=== PATIENT | male | born 1955 | race Caucasian/White ===

== ENCOUNTER 2023-07-18 12:30 | Emergency (ER) | payer MEDICARE, OTHER, SELFPAY ==
[2023-07-18 12:56] VITALS: BP 149/70; PULSE 72; RESP 16; TEMP 36.6; O2SAT 95
--- NOTE | 2023-07-18 13:09 | ECG_ITS ---
Measurements Intervals [place] Rate: 70 P: 52 AR: 179 QRS: -10 QRSD: 153 T: 94 QT: 412 QTc: 447 Interpretive Statements SINUS RHYTHM LEFT BUNDLE BRANCH BLOCK ABNORMAL ECG NO PREVIOUS ECG AVAILABLE FOR COMPARISON Electronically Signed On 07-18-2023 13:42:41 CDT by Marvin Metz D.O.
--- NOTE | 2023-07-18 13:44 | ED.EXTPRO ---
HPI - Extremity Problem General Chief complaint: Extremity Problem,Nontraumatic Stated complaint: pain under lt arm Time Seen by Provider: 07/18/23 13:15 Source: patient Mode of arrival: ambulatory Limitations: no limitations History of Present Illness HPI Narrative: 67-year-old male presents concern for pain under his left arm that started 2 weeks ago. Reports he has been doing a lot of heavy lifting and moving shoulders. He reports pain worsens with coughing, deep breathing, moving left arm. He denies shortness of breath. He denies nausea. He denies bruising. He denies injury or trauma. Complaint: extremity pain Related Data Home Medications Medication Instructions Recorded Confirmed lisinopril 10 mg tablet 10 mg PO DAILY 07/18/23 07/18/23 rosuvastatin 20 mg tablet 20 mg PO DAILY 07/18/23 07/18/23 Allergies Allergy/AdvReac Type Severity Reaction Status Date / Time No Known Allergies Allergy Mild Verified 07/18/23 12:59 Review of Systems Review of Systems: CONSTITUTIONAL: Denies malaise, chills, sweats, or fever. CARDIOVASCULAR: Denies chest pain, palpitations, or edema. RESPIRATORY: Denies cough or dyspnea. SKIN: Denies bruising, swelling, deformity MUSCULOSKELETAL: Reports pain under the left arm NEUROLOGIC: Denies numbness, weakness, or headache. All systems reviewed & are unremarkable except as noted in HPI and below PMFSH Comments At time of signature, agree with nursing past medical, surgical, social and family history. There is no relevant family history pertinent to the presenting complaint Exam Narrative: GENERAL: Well-appearing, well-nourished, and in no acute distress. HEAD: Normocephalic, atraumatic. EYES: PERRLA, sclera clear ENT: Nares clear. Mucous membranes moist. NECK: Supple. No jugular venous distension, thyromegaly, or carotid bruits. Carotids were easily palpable bilaterally. CHEST: No respiratory distress. Clear to auscultation. No bony deformities, no asymmetry. Speaks in full sentences. HEART: Regular rate and rhythm. No murmur heard. Normal peripheral pulses. EXTREMITIES: Normal range of motion. No edema. Normal strength and sensation. No point tenderness SKIN: Warm, dry, no visible rash. NEURO: Alert and oriented x3. PSYCH: Normal mood and affect Course Course Emergency Course: Patient's symptoms are consistent with musculoskeletal etiology, positional in nature, worsens with coughing and deep breathing Discussed EKG findings with patient, he does see a tour counselor for his high cholesterol but does not know of any history of left bundle-branch block. Patient will make an appoint with his tour counselor for follow-up on this EKG. Patient is aware of diagnosis, understands and agrees to treatment plan. Anticipatory guidance given. Patient agrees to follow-up as directed and is aware of reasons to seek care at the emergency department. Portions of this record may have been created with voice recognition software Level of Care: Express Care Visit Vital Signs Vital signs: Vital Signs Temperature 97.8 F 07/18/23 12:56 Pulse Rate 72 07/18/23 12:56 Respiratory Rate 16 07/18/23 12:56 Blood Pressure 149/70 H 07/18/23 12:56 Pulse Oximetry 95 07/18/23 12:56 Oxygen Delivery Room Air 07/18/23 12:56 Temperature 97.8 F 07/18/23 12:56 Pulse Rate 72 07/18/23 12:56 Respiratory Rate 16 07/18/23 12:56 Blood Pressure 149/70 H 07/18/23 12:56 Pulse Oximetry 95 07/18/23 12:56 Oxygen Delivery Room Air 07/18/23 12:56 Reviewed. MDM - Extremity (Nontraumatic) MDM Narrative Medical decision making narrative: No evidence of ACS, pericarditis, myocarditis, pulmonary embolism, pneumothorax, pneumonia, Zoster, or esophageal perforation. Historically not abrupt in onset, tearing or ripping, pulses symmetric, no evidence of aortic dissection. No pulse deficit. Not associated with abdominal or back pain. ECG Data EKG #1: ECG completio
== END 2023-07-18 14:00 | disposition home or self-care (01) ==
PROVIDERS: Emergency Provider Nurse Practitioner
DX: R07.89 Other chest pain (principal); Z79.899 Other long term (current) drug therapy
CPT/HCPCS: 93005; 99213; G0463

== ENCOUNTER 2024-04-22 12:54 | Emergency (ER) | payer MEDICARE, OTHER, SELFPAY ==
--- NOTE | ~2024-04-22 | XR_ITS ---
EXAMINATION: XR foot LT min 3V DATE: 04/22/2024 14:05 INDICATION: Swelling and bruising at the left foot TECHNIQUE: Dorsoplantar, two oblique and lateral views of the left foot were obtained. COMPARISON: None. FINDINGS: Alignment is normal. No fracture. Polyarticular osteoarthritis, mild at several tarsal metatarsal and interphalangeal joints and minimal at the first metatarsophalangeal joint. Small plantar calcaneal s pur. Soft tissues are unremarkable. IMPRESSION: 1. Mild polyarticular osteoarthritis in the mid and forefoot. Reviewed, dictated and finalized at location A. ESTIMATOR
[2024-04-22 13:07] VITALS: BP 148/71; PULSE 73; RESP 16; TEMP 36.7; O2SAT 95
--- NOTE | 2024-04-22 13:29 | ED.GENADULT ---
HPI - General Adult General Chief complaint: Skin/Abscess/Foreign Body Stated complaint: spider bite Time Seen by Provider: 04/22/24 13:29 Source: patient, RN notes reviewed and old records reviewed Mode of arrival: ambulatory Limitations: no limitations History of Present Illness HPI narrative: 68-year-old male presents to the [facility] with concerns for bruising to the dorsal aspect left foot. Bruising noted just to the dorsal aspect. No bruising. Mild swelling noted. No tenderness. No pain. Patient states that he noticed it Monday, 5 days ago. Patient is on Plavix Treatments prior to arrival: none Related Data Home Medications ?Medication ?Instructions ?Recorded ?Confirmed ?Last Taken ?Type lisinopril 10 mg tablet 10 mg PO DAILY 07/18/23 07/18/23 Unknown History rosuvastatin 20 mg tablet 20 mg PO DAILY 07/18/23 07/18/23 Unknown History clopidogrel 75 mg tablet mg 04/22/24 Unknown History ezetimibe 10 mg tablet mg 04/22/24 Unknown History Allergies Allergy/AdvReac Type Severity Reaction Status Date / Time No Known Allergies Allergy Mild Verified 04/22/24 13:20 Review of Systems Review of Systems: All systems reviewed & are unremarkable except as noted in HPI and below Constitutional: Constitutional: Reports no additional constitutional complaints ENT: Reports system reviewed and no additional complaints, except as documented Cardiovascular: Cardiovascular: Reports no additional cardiovascular complaints, Denies chest pain and Denies dyspnea Respiratory: Respiratory: Reports no additional respiratory complaints, Denies chest congestion, Denies cough and Denies dyspnea Gastrointestinal: Gastrointestinal: Reports no additional gastrointestinal complaints, Denies abdominal pain, Denies nausea and Denies vomiting Musculoskeletal: Musculoskeletal: Reports no additional musculoskeletal complaints Integumentary/Breasts: Skin/Breast: Reports as per HPI PMFSH Comments At the time of my signature, I reviewed and agree with the nursing past medical, surgical, social, and family history. There is no relevant family history pertinent to the patient complaint. Exam Const: General: cooperative, healthy appearing, comfortable, no acute distress, well developed, alert and well nourished Nutritional Appearance: well nourished Orientation/consciousness: patient oriented x3 Limitations: no limitations HENMT: Head: normal to inspection Face and sinus: normal facial exam and face symmetric Eyes: General: appearance normal, both eyes and all related structures Alignment and Position: alignment normal Periorbital: periorbital findings normal Neck: Neck: normal visual inspection, full ROM, no lymphadenopathy and no meningeal signs Chest: Chest palpation & inspection: normal inspection of the chest Resp: Effort & Inspection: normal respiratory effort and able to speak in complete sentences Cardio: Rate: regular rate Skin: General skin exam: normal color and no rashes or lesions noted Lesions: no lesions Rashes: no rashes Wounds: no wounds Other: Dorsal aspect left foot, bruising, mild swelling noted. No tenderness to palpation Neuro: General: patient oriented x3, gait normal, tone normal, moves all extremities and no meningeal signs Cognition (Neuro): normal cognition Speech: normal speech Gait exam (Neuro): Normal gait present Extrem: General: normal to inspection, full ROM, capillary refill normal and normal gait Left lower extremity: foot Details: normal capillary refill, toes with normal ROM, ecchymosis, vascular exam Details: dorsalis pedis pulse present and motor-sensory exam light-touch normal; no tenderness, no abrasions and no lacerations Psych: Appearance: grossly normal and well kempt Mental Status: mental status grossly normal Speech and movement: Normal speech and movement present and Clear speech present Affect: normal affect Attitude: cooperative Course Course Level of Care: Express Care Visit Vital Signs Vital signs: Vital Signs Temperature 98.0 F 04/22/24 13:07 Pulse Rate 73 04/22/24 13:07 Respiratory Rate 16 04/22/24 13:07 Blood Pressure 148/71 H 04/22/24 13:07 Pulse Oximetry 95 04/22/24 13:07 Temperature 98.0 F 04/22/24 13:07 Pulse Rate 73 04/22/24 13:07 Respiratory Rate 16 04/22/24 13:07 Blood Pressure 148/71 H 04/22/24 13:07 Pulse Oximetry 95 04/22/24 13:07 Reviewed Medical Decision Making MDM Narrative Medical decision making narrative: Patient sitting comfortably in exam room. Nontoxic, vitals stable. Patient in no acute distress Patient presents for bruising to left foot. No known injury, x-rays negative Most likely bruising noted to minor injury due to patient being on Plavix. Walks with a normal gait. No numbness tingling or pain. Patient appropriate for outpatient treatment and follow-up Discharge instructions reviewed with patient, as well as provided in writing per nursing staff. The instructions also include specific and strict return/GO TO THE ER as well as f/u information. All questions have been answered, and the patient deny any further questions with discharge and discharge plan. Some parts of this dictation were generated by voice recognition software and may contain typographical and/or grammatical inaccuracies. Differential Diagnosis Differential Diagnosis: Contusion, fracture Medical Records Medical records reviewed: Yes I reviewed the external patient's medical records. Vital Signs Vital Signs: Vital Signs Temperature 98.0 F 04/22/24 13:07 Pulse Rate 73 04/22/24 13:07 Respiratory Rate 16 04/22/24 13:07 Blood Pressure 148/71 H 04/22/24 13:07 Pulse Oximetry 95 04/22/24 13:07 Temperature 98.0 F 04/22/24 13:07 Pulse Rate 73 04/22/24 13:07 Respiratory Rate 16 04/22/24 13:07 Blood Pressure 148/71 H 04/22/24 13:07 Pulse Oximetry 95 04/22/24 13:07 Reviewed Lab Data Lab results reviewed: Yes I reviewed the patient's lab results. Labs: Reviewed Imaging Data Radiologist's impression: EXAMINATION: XR foot LT min 3V DATE: 04/22/2024 14:05 INDICATION: Swelling and bruising at the left foot TECHNIQUE: Dorsoplantar, two oblique and lateral views of the left foot were obtained. COMPARISON: None. FINDINGS: Alignment is normal. No fracture. Polyarticular osteoarthritis, mild at several tarsal metatarsal and interphalangeal joints and minimal at the first metatarsophalangeal joint. Small plantar calcaneal spur. Soft tissues are unremarkable. IMPRESSION: 1. Mild polyarticular osteoarthritis in the mid and forefoot. Critical Care Time Critical Care Time Critical Care Time: No Discharge Plan Discharge Clinical Impression: Superficial bruising of foot Qualifiers: Encounter type: initial encounter Laterality: left Qualified Code(s): S90.32XA - Contusion of left foot, initial encounter Patient Disposition: Home, Self-Care Condition: Stable Instructions: Antibiotic Form, Contusion in Adults (ED) Additional Instructions: Rest, ice and elevate every 2-3 hours for 15-20 minutes. Bruising was probably caused by your blood thinner medication. Follow-up with primary care provider as needed New or worsening symptoms go directly to the emergency room Patient Language: Maldivian Prescriptions: No Action lisinopril 10 mg tablet 10 mg PO DAILY rosuvastatin 20 mg tablet 20 mg PO DAILY clopidogrel 75 mg tablet ezetimibe 10 mg tablet Follow-up/Referrals: PHYSICIAN,GOVERNMENT AUDITOR [Primary Care Provider] - Time of Disposition: 15:03
== END 2024-04-22 15:07 | disposition home or self-care (01) ==
PROVIDERS: Emergency Provider Nurse Practitioner; Referring Provider Emergency Medicine
DX: S90.32XA Contusion of left foot, initial encounter (principal); X58.XXXA Exposure to other specified factors, initial encounter; Y93.9 Activity, unspecified; I10 Essential (primary) hypertension; E78.00 Pure hypercholesterolemia, unspecified; Z95.5 Presence of coronary angioplasty implant and graft
CPT/HCPCS: 73630; 99212; G0463

== ENCOUNTER 2024-09-04 00:47 | Day surgery (SDC) | payer MEDICARE, OTHER, SELFPAY ==
[2024-08-23 09:14] VITALS: BMI 36.6
--- NOTE | 2024-08-23 09:26 | PC.NURSE ---
Spoke with patient regarding medication Plavix. Patient verbalizes understanding that the last dose is to be taken on 08/27/2024 and the Endoscopist will instruct them when to restart after the procedure.
--- OUTSIDE RECORDS SUMMARY | 2024-09-04 00:49 | XMS_ITS | Encounter Summary ---
Author Organization [facility] Address [address] [place] [id number] Care Team Providers Care Search Advertising Strategist Name Role Phone Harrison Davis MD Unavailable [phone] Mel Garland MD Primary Care Provider + Reason for Visit * Reason Onset Date Comments Prior Authorization 08/29/2024 Repatha - de nied Medication Information 08/29/2024 praluent Encounter Details Date Type Department Care Team (Late st Contact Info) Description 08/29/2024 Telephone [facility] [address] [id number] Shani Barksdale CMA Prior Authorization (Repatha - denied); Medication Information (praluent) Social History Tobacco Use Types Packs/Day Years Used Date Smoking Tobacco: Never Passive Smoke Exposure: Past Smokeless Tobacco: Never Alcohol Use Standard Drinks/Week Comments Yes 16.7 (1 standard drink = 0.6 oz pure alcohol) Rare PHQ-2 Answer Date Recorded Patient Health Questionnaire-2 Score 0 05/24/2024 Sex and Gender Information Value Date Recorded Sex Assigned at Male 05/21/2024 3:47 PM 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 ki * Emmy Miranda NP - 09/03/2024 3:25 PM CDT Praluent 75 mg SQ every 2 weeks Thanks * Shani Barksdale CMA - 09/02/2024 3:21 PM CDT Tried Raghu several times. No answer. Called elida back. He has never tried praluent. Message to provider to change to praluent. Needing strength 75mg or 150mg. ki * Shani Barksdale CMA - 08/29/2024 5:24 PM CDT While filling out the prior auth for repatha. Notice that the application came from [facility]. [facility] prefers praluent. Called pt to see if he changed insurance. Pt asked that I call his (raghu) [phone]. Calledleobardo and LMOM for her to call the office back. gavin documented in this encounter Plan of Treatment Upcoming Encounters Date Type Department Care Team (Late st Contact Info) Description 10/22/2024 10:30 AM CDT Office Visit [facility] Family Medicine - [place] [address] [place] [address] Mel Garland MD [address] [place] [address] 03/04/2025 9:00 AM CDT Office Visit [facility], [address] [place], [place] [address] Harrison Davis MD Three [facility]. [address] [place], [place] [address] 05/27/2025 7:10 AM VIBRATING SCREED OPERATOR Allied Health/Nurse Visit [facility] - [address] [place] [address], [place] [address] Mel Garland MD [address] [place] [address] [place] [address] [phone] 05/30/2025 7:50 AM VIBRATING SCREED OPERATOR Office Visit [facility] - [address] [place] [address] [phone] Mel Garland MD [address] [place] [address] [place] [phone] documented as of this encounter Visit Diagnoses Not on filedocumented in this encounter Care Teams Search Advertising Strategist Relationship Specialty Start Date End Date Mel Garland MD [address] [facility] [address] [place] [id number] PCP - General FAMILY PRACTICE 05/24/24 Harrison Davis MD Three [facility]. [address] [place], [place] [address] [employer] CARDIOVASCULAR DISEASE 11/01/17 documented as of this encounter
--- OUTSIDE RECORDS SUMMARY | 2024-09-04 00:50 | XMS_ITS | Referral Summary ---
Author Organization [facility] Address [address] [place] [address] Care Team Providers Care Dry Cleaner Apprentice Name Role Phone Rudy Alexander MD Primary Care Provider [phone] Allergies No known active allergies Medications lisinopril (PRINIVIL,ZESTRI L) 10 mg tablet 10 mg daily Ac tive rosuvastatin (CRESTOR) 20 mg tablet Take 1 tablet by mouth daily 3 08/20/2018 Active ezetimibe (ZETIA) 10 mg tablet Take 1 tablet (10 mg total) by mouth daily 30 tablet 5 01/30/2019 Active Active Problems Problem Noted Date Diagnosed Date HTN (hypertension) 02/02/2018 Hyperlipidemia 02/02/2018 Obesity 02/02/2018 Primary osteoarthritis of knees, bilateral 08/03 Immunizations Immunization Administration Dates Next Due Influenza, Quadrivalent, Split, Intramuscular Tdap 03/03/2016 Social History Tobacco Use Types Packs/Day Years Used Date Smoking Tobacco: Never Smokeless Tobacco: Never Alcohol Use Standard Drinks/Week Comments Yes 2 (1 standard drink = 0.6 oz pur e alcohol) Personal Safety Answer Date Recorded Getting School Help Needed Not on file 07/22 Sex and Gender Information Value Date Recorded Sex Assigned at Not on file Legal Sex Male 12:38 AM 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 Gender Identity Not on file Sexual Orientation Not on file Last Filed Vital Signs Vital Sign Reading Time Taken Comments Blood Pressure 142/80 01/30/2019 3:59 PM CDT Pulse 66 01/30/2019 3:59 PM CDT Temperature 36.9 C (98.5 F) 01/30/2019 3:59 PM CDT Respiratory Rate 16 09/27/2018 2:35 PM CDT Oxygen Saturation 99% 01/30/2019 3:59 PM CDT Inhaled Oxygen Concentration - - Weight 132.9 kg (293 lb) 01/30/2019 3:59 PM CDT Height 188 cm (6' 2 ) 01/30/2019 3:59 PM CDT Body Mass Index 37.62 01/30/2019 3:59 PM CDT Plan of Treatment Not on file Insurance [employer] Care Teams Dry Cleaner Apprentice Relationship Specialty Start Date End Date Rudy Alexander MD PCP - General Family Medicine 09/27/18
--- OUTSIDE RECORDS SUMMARY | 2024-09-04 00:50 | XMS_ITS | Clinical Summary ---
Author Organization [facility] Address [address] [place] [address] Phone Care Team Providers Care Housekeeper Name Role Phone Rudy Alexander MD Primary Care Provider Social History Tobacco Use Types Packs/Day Years Used Date Smoking Tobacco: Never Assessed Sex and Gender Information Value Date Recorded Sex Assigned at Not on file Legal Sex Male 2:09 PM CDT Gender Identity Not on file Sexual Orientation Not on file Plan of Treatment Health Maintenance Due Date Last Done Comments COLORECTAL SCREENING 2001 Colorectal Cancer Screening 2001 FIT-DNA Q 3 years 2001 FIT/FOBT Q 1 year 2001 Flex Sig/CT Colonography Q 5 years 2001 PNEUMOCOCCAL VACCINE 50+ YEARS (1 of 1 - PCV) 11/13/19 07 ZOSTER VACCINE (1 of 2) 2006 INFLUENZA VACCINE (#1) 2023 03/03/2016 DTAP/TDAP/TD VACCINES (2 - Td or Tdap) 03/03/2026 RSV VACCINE (60+ or ) (1 - 1-dose 75+ series) 11/13/2031 Insurance [facility] Factor 14 CHOICE Care Teams Housekeeper Relationship Specialty Start Date End Date uRdy Alexander MD PCP - General Family Practice 07/01/19
--- OUTSIDE RECORDS SUMMARY | 2024-09-04 00:50 | XMS_ITS | Encounter Summary ---
Author Organization [facility] Address [facility] [place] [address] Care Team Providers Care Golf Ball Inspector Name Role Phone Ruyd Head MD Unavailable Unavailable Rudy Alexander MD Primary Care Provider [phone] Harrison Davis MD Unavailable [phone] Mel Garland MD Primary Care Provider + Encounter Details Date Type Department Care Team (Late Contact Info) Description 07/23/2014 [facility] AT [address] [address] Gunjan Macias, [facility]-[address] [address] Social History Tobacco Use Types Packs/Day Years Used Date Smoking Tobacco: Never Alcohol Use Standard Drinks/Week Comments Yes 0 (1 standard drink = 0.6 oz pur e alcohol) Rare Sex and Gender Information Value Date Recorded Sex Assigned at Male 05/21/2024 3:47 PM CANCER REGISTRAR Legal Sex Male 11:36 PM CDT Gender Identity Not on file Sexual Orientation Not on file 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 [address] [place], [place] [address] 05/27/2025 7:10 AM CANCER REGISTRAR Allied Health/Nurse Visit [facility] - [address] [place] [phone] Mel Garland MD [facility] [address] [place] [phone] 05/30/2025 7:50 AM CANCER REGISTRAR Office Visit [facility] - [address] [place] [phone] Mel Garland MD [address] [place] [address] [phone] documented as of this encounter Visit Diagnoses Not on filedocumented in this encounter Care Teams Golf Ball Inspector Relationship Specialty Start Date End Date Rudy Alexander MD PCP - General FAMILY PRACTICE 11/05/15 05/23/24 Mel Garland MD [address] [place] [id number] PCP - General FAMILY PRACTICE 05/24/24 Rudy Head MD [place] [facility] CARDIOVASCULAR DISEASE 11/06/15 Harrison Davis MD Three [facility]. [address] [place] [address] [place] [facility] CARDIOVASCULAR DISEASE 11/01/17 documented as of this encounter
--- OUTSIDE RECORDS SUMMARY | 2024-09-04 00:50 | XMS_ITS | Encounter Summary ---
Author Organization [facility] Address [facility] [place] [address] Care Team Providers Care Paperback Machine Operator Name Role Phone Rudy Alexander MD Primary Care Provider [phone] Harrison Davis MD Unavailable [phone] Mel Garland MD Primary Care Provider + Encounter Details Date Type Department Care Team (Late st Contact Info) Description 04/16/2020 [facility] [address] [address] Niki Willoughby MA Social History Tobacco Use Types Packs/Day Years Used Date Smoking Tobacco: Never Smokeless Tobacco: Never Alcohol Use Standard Drinks/Week Comments Yes 0 (1 standard drink = 0.6 oz pur e alcohol) Rare Sex and Gender Information Value Date Recorded Sex Assigned at Male 05/21/2024 3:47 PM 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 FINAL 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 Legal Sex Male 11:36 PM CDT Gender Identity Not on file Sexual Orientation Not on file 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 Not on file documented as of this encounter Plan of Treatment Upcoming Encounters Date Type Department Care Team (Late st Contact Info) Description 10/22/2024 10:30 AM CDT Office Visit [facility] Family Medicine - [place] [address] [facility] [address] [place] [address] [id number] Mel Garland MD [address] [place] [phone] 03/04/2025 9:00 AM CDT Office Visit [facility], [address] [place] [address] Harrison Davis MD Three [facility]. [address] [place] [address] 05/27/2025 7:10 AM MOVEMENT ASSEMBLY FINAL INSPECTOR Allied Health/Nurse Visit [facility] Family Medicine - [place] [address] [place] [address] [address] [place] [address] Mel Garland MD [address] [place], [place] [id number] 05/30/2025 7:50 AM MOVEMENT ASSEMBLY FINAL INSPECTOR Office Visit [facility] [place] [address] [place] [address] [address] [place] [address] Mel Garland MD [address] [place] [address] documented as of this encounter Procedures Procedure Name Priority Date/Time Associated Diagnosis Comments COMPREHENSIVE METABOLIC PANEL Routine 09/11/2023 CBC, MANUAL DIFF Routine 09/11/2023 COMPREHENSIVE METABOLIC PANEL Routine 01/27/2022 LIPID PANEL Routine 01/27/2022 COMPREHENSIVE METABOLIC PANEL Routine 04/15/2020 LIPID PANEL Routine 04/15/2020 documented in this encounter Results * COMPREHENSIVE METABOLIC PANEL (09/11/2023) BUN 14 CREATININE S/P/B 0.89 0.7 - 1.3 us Default History Genericprovider LABORATORY Edited Result - Final * CBC, MANUAL DIFF (09/11/2023) HCT 46.5 us Default History Genericprovider LABORATORY Edited Result - Final * (ABNORMAL) COMPREHENSIVE METABOLIC PANEL (01/27/2022) Pathologist [facility] SODIUM S/P/B 139 POTASSIUM S/P/B 4.2 CO2 21 CHLORIDE S/P/B 107 GLUCOSE 130 mg/dL CALCIUM S/P/B 8.7 BUN 17 CREATININE S/P/B 0.90 0.7 - 1.3 EGFR NON-AFR. AMER. 95(A) <=90 ALKALINE PHOSPHATASE S/P/B 100 ALT 105 AST 65 BILIRUBIN TOTAL S/P/B 0.5 ALBUMIN S/P/B 4.3 3.5 - 5.0 TOTAL PROTEIN S/P/B 6.5 GLOBULIN 2.2 01/27/2022 us Doc [facility] Abstract LABORATORY Final Result * LIPID PANEL (01/27/2022) [facility] CHOLESTEROL 161 HDL 34 TRIGLYCERIDES 117 NON HDL CHOLESTEROL 127 LDL (CALCULATED) 106 01/27/2022 Doc [facility] Abstract LABORATORY Final Result * COMPREHENSIVE METABOLIC PANEL (04/15/2020) Pathologist [facility] SODIUM S/P/B 142 POTASSIUM S/P/B 4.9 CO2 29 CHLORIDE S/P/B 105 GLUCOSE 111 mg/dL CALCIUM S/P/B 9.7 BUN 16 CREATININE S/P/B 1.05 0.7 - 1.3 EGFR AFR. AMER. 87 <=90 EGFR NON-AFR. AMER. 75 <=90 ALKALINE PHOSPHATASE S/P/B 78 ALT 32 AST 21 BILIRUBIN TOTAL S/P/B 0.5 ALBUMIN S/P/B 4.5 3.5 - 5.0 TOTAL PROTEIN S/P/B 6.7 GLOBULIN 2.2 04/15/2020 us Doc [facility] Abstract LABORATORY Final Result * LIPID PANEL (04/15/2020) CHOLESTEROL 226 HDL 48 TRIGLYCERIDES 115 NON HDL CHOLESTEROL 178 LDL (CALCULATED) 155 04/15/2020 us Doc [facility] Abstract LABORATORY Final Result documented in this encounter Visit Diagnoses Not on filedocumented in this encounter Care Teams Paperback Machine Operator Relationship Specialty Start Date End Date Rudy Alexander MD PCP - General FAMILY PRACTICE 11/05/15 05/23/24 Mel Garland MD [address] [place] [id number] PCP - General FAMILY PRACTICE 05/24/24 [facility] MD [facility] [address] [place] [address] [place] [employer] Worker CARDIOVASCULAR DISEASE 11/01/17 documented as of this encounter
--- OUTSIDE RECORDS SUMMARY | 2024-09-04 00:50 | XMS_ITS | Clinical Summary ---
Author Organization [facility] Office Center Address [address] [place] [address] Care Team Providers Care Senior Php Software Developer Name Role Phone Rudy Alexander MD Primary Care Provider [phone] Allergies No known active allergies Medications lisinopril [...] Due Influenza, Quadrivalent, Split, Intramuscular Tdap 03/03/2016 Surgical History Surgery Date Site/Laterality Comments KNEE ARTHROSCOPY Left COLONOSCOPY Medical History Medical History Date Comments Dyslipidemia Hypertension Hyperlipidemia Family History Medical History Relation Name Comments Gout Brother 1 Colon cancer Father Gout Father Diabetes Mother Stroke Mother Drug abuse Sister 2 No Known Problems Son 1 No Known Problems Son 2 Relation Name Status Comments Brother 1 Alive Brother 2 Alive Father Mother Sister 1 Alive Sister 2 Son 1 Alive Son 2 Alive Social History Tobacco Use Types Packs/Day Years Used Date Smoking Tobacco: Never Smokeless Tobacco: Never Alcohol Use Standard Drinks/Week Comments Yes 2 (1 standard drink = 0.6 oz pur e alcohol) Personal Safety Answer Date Recorded Getting School Help Needed Not on file 07/22 Sex and Gender Information Value Date Recorded Sex Assigned at Not on file Legal Sex Male 12:38 AM 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
--- OUTSIDE RECORDS SUMMARY | 2024-09-04 00:50 | XMS_ITS | Encounter Summary ---
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 Historical Provider Final Res ult documented in this encounter Visit Diagnoses Not on filedocumented in this encounter Care Teams Bending Roll Operator Relationship Specialty Start Date End Date Rudy Alexander MD PCP - General Family Medicine 09/27/18 documented as of this encounter
--- OUTSIDE RECORDS SUMMARY | 2024-09-04 00:50 | XMS_ITS | Encounter Summary ---
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 Historical Provider Final Res ult documented in this encounter Visit Diagnoses Not on filedocumented in this encounter Care Teams Stitch Wheeler Relationship Specialty Start Date End Date Rudy Alexander MD PCP - General Family Medicine 09/27/18 documented as of this encounter
--- OUTSIDE RECORDS SUMMARY | 2024-09-04 00:50 | XMS_ITS | Clinical Summary ---
Author Organization [facility] Address [facility] [place] [address] Care Team Providers Care Investigative Reporter Name Role Phone Harrison Davis MD Unavailable [phone] Mel Garland MD Primary Care Provider + Allergies Active Allergy Reactions Criticality Noted Date Comments Atorvastatin Joint Pain 11/26/2015 Ezetimibe-Simvastatin Myalgias 11/26/2015 Medications rosuvastatin (CRESTOR) 20 MG tablet Take 1 tablet (20 mg total) by mouth daily. 90 tablet 3 4 Active lisinopril (PRINIVIL) 10 MG tablet TAKE 1 TABLET(10 MG) BY MOUTH DAILY 90 tablet 1 4 Active clopidogrel (PLAVIX) 75 MG tablet Take 1 tablet (75 mg total) by mouth daily. 30 tablet 3 4 Active alirocumab (PRALUENT) 75 mg/mL injection (PEN) Inject 1 mL (75 mg total) into the skin every 14 (fourteen) days. 2 Pen 6 5 Active aspirin 81 MG tablet Take 1 tablet (81 mg total) by mouth daily. 3 025 Discontinued ezetimibe (ZETIA) 10 MG tablet Take 1 tablet (10 mg total) by mouth daily. 90 tablet 3 4 025 Discontinued evolocumab (REPATHA SURECLICK) 140 MG/ML injection (PEN) Inject 1 mL (140 mg total) into the skin every 14 (fourteen) days. 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 Zotarolimus-eluting stent. Now on Plavix only. ROSARIO on CPAP 11/07/2018 Overview (05/24/2024): On CPAP. Machine broke and finally was able to use his 's for the last 5 years. Assessment & Plan (05/24/2024 9:55 AM GLOBAL CMO): Ordered snap diagnostic testing for repeat sleep study to evaluate his settings and determine need for machine. Morbid obesity 02/02/2018 Assessment & Plan (05/24/2024 9:55 AM GLOBAL CMO): Encouraged dietary and lifestyle changes. Essential hypertension 11/30/2016 Overview (05/24/2024): Takes lisinopril. Home readings are usually 137/85s. Usually upper 130s, low 140s. No side effects. Assessment & Plan (05/24/2024 9:55 AM GLOBAL CMO): Managed by cardiology. Tends to run borderline. Encouraged him to discuss with cardiology whether a slight adjustment to lisinopril would be warranted. Hypercholesterolemia Overview (05/24/2024): Takes rosuvastatin, zetia. Assessment & Plan (05/24/2024 9:54 AM GLOBAL CMO): Managed by cardiology. Stable. Encounters Date Type Department Care Team Description 08/29/2024 Telephone [facility], [place] [address] [place] [address] Shani Barksdale, LOADING MANAGER Prior Authorization (Repatha - denied); Medication Information (praluent) 08/27/2024 9:00 AM CDT Office Visit [facility] [place] [facility], [address] [place] [address] Emmy Miranda NP Follow Up 08/27/2024 Travel 08/20/[address] [place] [address] Mel Garland MD Appointment Request (AWV scheduled) 07/16/2024 Telephone [facility], [facility] [address] [place] [address] Harrison Davis MD Surgical Clearance ([facility] requesting cardiac clearance) 07/13/2024 Scan HEALTH INFO SRVCS Scanned, Doc [facility] 06/28/2024 Telephone [facility] [address] [facility] [address] [place] [address] Mel Garland MD Results 06/19/2024 Scan HEALTH INFO SRVCS Scanned, Doc [facility] from Last 3 Months Immunizations Immunization Administration Dates Next Due Flucelvax 6 Months+ (Prefilled Syringe) 02/14/20 19 Influenza Adult (Generic) 03/03/2016 Pneumococcal (Prevnar 20) 05/24/2024 Tdap (Generic) 03/03/2016 Family History Medical History Relation Comments Cancer Brother 1 Diabetes Brother 2 Cancer Father Diabetes Mother Heart Disease Mother Stroke Mother Liver Disease Sister 1 Heart Disease Sister 2 No Known Problems Son 1 No Known Problems Son 2 Coronary artery disease Neg Hx prematur e Relation Status Comments Brother 1 Alive Brother 2 Alive Father Mother Sister 1 Sister 2 Son 1 Alive Son 2 Alive Social History Tobacco Use Types Packs/Day Years Used Date Smoking Tobacco: Never Passive Smoke Exposure: Past Smokeless Tobacco: Never Tobacco Cessation:Counseling Given: No Alcohol Use Standard Drinks/Week Comments Yes 16.7 (1 standard drink = 0.6 oz pure alcohol) Rare PHQ-2 Answer Date Recorded Patient Health Questionnaire-2 Score 0 05/24/2024 Sex and Gender Information Value Date Recorded Sex Assigned at Male 05/21/2024 3:47 PM GLOBAL CMO Legal Sex Male 11:36 PM CDT Gender Identity Not on file Sexual Orientation Not on file 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 Not on file Last Filed Vital Signs Vital Sign Reading Time Taken Comments Blood Pressure 122/82 08/27/2024 8:47 AM CDT Pulse 64 08/27/2024 8:47 AM CDT Temperature 36.6 C (97.9 F) 05/24/2024 8:31 AM GLOBAL CMO Respiratory Rate 14 09/08/2023 12:45 PM CDT Oxygen Saturation 96% 08/27/2024 8:47 AM CDT Inhaled Oxygen Concentration - - Weight 139.7 kg (308 lb) 08/27/2024 8:47 AM CDT Height 188 cm (6' 2 ) 08/27/2024 8:47 AM CDT Body Mass Index 39.54 08/27/2024 8:47 AM CDT Plan of Treatment Upcoming Encounters Date Type Department Care Team (Late st Contact Info) Description 10/22/2024 10:30 AM CDT Office Visit [address] [address] Mel Garland MD [address] [address] 03/04/2025 9:00 AM CDT Office Visit [facility], [facility] [address] [place] [address] Harrison Davis MD [facility]. [address] [place] [address] 05/27/2025 7:10 AM GLOBAL CMO Allied Health/Nurse Visit [address] [address] Mel Garland MD [address] [address] 05/30/2025 7:50 AM GLOBAL CMO Office Visit [address] [place] [address] Mel Garland MD [address] [place] [address] Health Maintenance Due Date Last Done Comments Hepatitis C 1974 Zoster Vaccines (1 of 2) 2006 RSV Immunization or 60+ Years (1 - Risk 60-74 years 1-dose series) 2016 Annual Medicare Wellness Visit 2021 COVID-19 Vaccine (3 - 2023-2 5 season) 2024 07/26/2020, 07/04/2020 Colorectal Cancer Screening Colonoscopy (10 Years) 04/01/2024 04/01/2014 DTaP, Tdap and Td Vaccines ( 2 - Td or Tdap) 03/03/2026 03/03/2016 PHQ-2 (Physician [place]) Completed 05/24/2024 Pneumococcal Vaccine: 50+ Years Completed 05/24/2024 Meningococcal B Vaccine Aged Out No l onger eligible based on patient's age to complete this topic Meningococcal Vaccine Aged Out No edwin babs eligible based on patient's age to complete this topic RSV Immunizations Under 20 Months Aged Out No longer eligible b ased on patient's age to complete this topic Procedures Procedure Name Priority Date/Time Associated Diagnosis Comments COLONOSCOPY GENERIC (SCAN ORDER) 04/01/2014 from Last 3 Months or Most Recently Relevant to Health Maintenance Results * COLONOSCOPY GENERIC (SCAN ORDER) (04/01/2014) 04/01/2014 us Doc [facility] Scanned SCANNING Final Resu lt from Last 3 Months or Most Recently Relevant to Health Maintenance Insurance MEDICARE [facility] Advance Directives * Full Code (Latest Code Status on File) Date Activated Date Inactivated Comments 07/25/2023 1:20 PM 09/08/2023 6:40 AM Care Teams Investigative Reporter Relationship Specialty Start Date End Date Mel Garland MD [address] [place] [address] PCP - General FAMILY PRACTICE 05/24/24 Harrison Davis MD [facility] [address] [place] [address] Marcella Banking Analyst CARDIOVASCULAR DISEASE 11/01/17
[2024-09-04 09:08] VITALS: BP 163/90; PULSE 69; RESP 18; TEMP 36.5; O2SAT 94; BMI 38.0
[2024-09-04] MEDS: LACTATED RINGERS 1,000 ML 150 ML IV CONT (09:12)
--- NOTE | 2024-09-04 09:43 | WPDANESEPPF ---
Anes - Initial Pre Proc Eval Procedure: Operation Date: 09/04/24 10:00 Proposed Procedures p Screening Colonoscopy - Norbert Kitchen MD Date/Time: 09/04/24 09:43 Surgeon: Norbert Kitchen MD Pre Op Diagnosis: Screening Patient Data Age: 68 Gender: M Height: 1.88 m Weight: 134.2 kg Last Vital Signs Temp 97.7 F 09/04/24 09:08 Pulse 69 09/04/24 09:08 Resp 18 09/04/24 09:08 BP 163/90 H 09/04/24 09:08 Pulse Ox 94 09/04/24 09:08 O2 Del Method Room Air 09/04/24 09:08 Allergies Allergy/AdvReac Type Severity Reaction Status Date / Time No Known Allergies Allergy Mild Verified 09/04/24 09:06 Home Medications ?Medication ?Instructions ?Recorded ?Confirmed ?Type lisinopril 10 mg tablet 10 mg PO DAILY 07/18/23 09/04/24 History rosuvastatin 20 mg tablet 20 mg PO DAILY 07/18/23 09/04/24 History clopidogrel 75 mg tablet 75 mg PO DAILY 04/22/24 09/04/24 History ezetimibe 10 mg tablet 10 mg PO DAILY 04/22/24 09/04/24 History nitroglycerin 0.4 mg sublingual 0.4 mg sublingual Q5M PRN chest 07/16/24 07/16/24 History tablet pain Patient hx anesthesia problems: none Family hx anesthesia problems: none Results Review: All pre-operative results and documents have been reviewed as part of the pre-operative evaluation. [facility] Social History Social History Smoking status: Never smoker Alcohol intake: current Drinks per week: 20 Alcohol use details: beer Substance use type: does not use Living arrangements: with family Spiritual care concerns: No Anes - Eval Final PreProcedure Day of Procedure 09/04/24 09:43 Patient weight: obese Heart: regular rate and rhythm Lungs: clear to auscultation Airway: Mallampati scale class II Neurological: alert and oriented Last oral intake: >/= 8 hours ASA classification: III Emergent: no Anesthetic plan: proceed Anesthesia type and monitoring: general GIVS and standard monitoring Results Review: All pre-operative results and documents have been reviewed as part of the pre-operative evaluation. Informed Consent: The patient's anesthetic plan and its attendant risks and benefits were discussed with the patient/family/POA. Questions were solicited and answers provided to the satisfaction of the patient/family/POA.
--- NOTE | 2024-09-04 10:01 | PM.IMHP ---
H&P: HPI History of Present Illness Date/Time: 09/04/24 10:01 Chief Complaint: Family history of colorectal cancer Narrative: This patient has family history of colorectal cancer. in brother had colorectal cancer at age 70. Review of Systems Review of Systems: All systems reviewed & are unremarkable except as noted in HPI and below [facility] Social History Social History Smoking status: Never smoker Alcohol intake: current Drinks per week: 20 Alcohol use details: beer Substance use type: does not use Living arrangements: with family Spiritual care concerns: No Meds Home Medications and Allergies Home Medications ?Medication ?Instructions ?Recorded ?Confirmed ?Type lisinopril 10 mg tablet 10 mg PO DAILY 07/18/23 09/04/24 History rosuvastatin 20 mg tablet 20 mg PO DAILY 07/18/23 09/04/24 History clopidogrel 75 mg tablet 75 mg PO DAILY 04/22/24 09/04/24 History ezetimibe 10 mg tablet 10 mg PO DAILY 04/22/24 09/04/24 History nitroglycerin 0.4 mg sublingual 0.4 mg sublingual Q5M PRN chest 07/16/24 07/16/24 History tablet pain Allergies Allergy/AdvReac Type Severity Reaction Status Date / Time No Known Allergies Allergy Mild Verified 09/04/24 09:06 Vital Signs Vital Signs - 24 hr 09/04/24 09:08 Temperature 97.7 F Pulse Rate 69 Respiratory Rate 18 Blood Pressure 163/90 H Pulse Oximetry 94 Oxygen Delivery Room Air Exam Const: General: cooperative and healthy appearing Resp: Effort & Inspection: normal respiratory effort and able to speak in complete sentences Auscultation: clear to auscultation bilaterally Cardio: Rate: regular rate Rhythm: regular rhythm GI: Inspection: normal to inspection GI Palp: No No hepatosplenomegaly present Auscultation: normal bowel sounds Rectal Exam: deferred Skin: General skin exam: normal color Psych: Appearance: grossly normal Mental Status: mental status grossly normal Assessment and Plan Assessment and plan (1) Family history of colon cancer: Code(s): Z80.0 - Family history of malignant neoplasm of digestive organs Status: Acute Assessment and Plan: The patient is deemed a good candidate for the procedure. Consent signed. Will proceed.
[2024-09-04 10:31] VITALS: BP 145/85; PULSE 71; RESP 19; O2SAT 97
[2024-09-04 10:41] VITALS: BP 148/86; PULSE 71; RESP 19; O2SAT 97
[2024-09-04 10:51] VITALS: BP 156/89; PULSE 84; RESP 21; O2SAT 100
== END 2024-09-04 10:56 | disposition home or self-care (01) ==
PROVIDERS: PCP Student in an Organized Health Care Education/Training Program; Referring Provider Student in an Organized Health Care Education/Training Program; Visit Provider Internal Medicine Gastroenterology
PROC: 0DJD8ZZ Inspection of Lower Intestinal Tract, Via Natural or Artificial Opening Endoscopic (ICD-10-PCS; CPT 45378; principal; 2024-09-04 10:00)
DX: Z12.11 Encounter for screening for malignant neoplasm of colon (principal); K64.8 Other hemorrhoids; E66.9 Obesity, unspecified; Z68.38 Body mass index [BMI] 38.0-38.9, adult; Z79.02 Long term (current) use of antithrombotics/antiplatelets; Z80.0 Family history of malignant neoplasm of digestive organs
CPT/HCPCS: G0105; J2704; J7120